=== PATIENT | female | born 1995 | race Caucasian/White ===

== ENCOUNTER 2022-02-27 19:25 | Emergency (ER) | payer OTHER ==
[~2022-02-27] VITALS: Ht 162.6 cm; Wt 65.5 kg
[2022-02-27] MEDS ORDERED: SODIUM CHLORIDE 0.9% 1,000 ML IV ONE (21:15)
[2022-02-27 21:21] LABS: BASOPHILS % (AUTO) 1.1 % (0.0-2.0); EOSINOPHILS % (AUTO) 1.7 % (1.0-6.0); HEMATOCRIT 34.5 % (36-46); HEMOGLOBIN 11.3 g/dL (12.0-16.0); LYMPHOCYTES # (AUTO) 1.7 K/uL (1.0-4.8); LYMPHOCYTES % (AUTO) 32.4 % (22.0-44.0); MEAN CORPUSCULAR HEMOGLOBIN 27.4 pg (26.0-34.0); MEAN CORPUSCULAR HGB CONC 32.8 G/dL (31.0-37.0); MEAN CORPUSCULAR VOLUME 83 fL (80-100); MONOCYTES # (AUTO) 0.3 K/uL (0.1-1.0); MONOCYTES % (AUTO) 5.3 % (2.0-9.0); NEUTROPHILS # (AUTO) 3.1 K/uL (1.8-7.7); NEUTROPHILS % (AUTO) 59.5 % (40.0-70.0); PLATELET COUNT (AUTO) 266 K/uL (150-450); RED BLOOD CELL COUNT(AUTO) 4.14 MIL/uL (4.00-5.20); RED CELL DISTRIBUTION WIDTH 13.2 % (11.5-14.5)
[2022-02-27 21:31] LABS: ANION GAP 4 mmol/L (8-16); CALCIUM, TOTAL 9.1 mg/dL (8.8-10.5); CARBON DIOXIDE 31 mmol/L (22-29); CHLORIDE 102 mmol/L (98-107); CREATININE 0.95 mg/dL (0.60-1.30); GLUCOSE,RANDOM 93 mg/dL (70-110); POTASSIUM 4.2 mmol/L (3.5-5.1); SODIUM SERUM 137 mmol/L (136-145); UREA NITROGEN, BLOOD 9 mg/dL (7-18)
[2022-02-27 21:32] LABS: GLOMERULAR FILTR. RATE CALC > 60 mL/min (>60)
[2022-02-27 21:41] LABS: ALANINE AMINOTRANSFERASE 14 U/L (12-78); ALBUMIN 3.8 g/dL (3.4-5.0); ALKALINE PHOSPHATASE 59 U/L (46-116); ASPARTATE AMINOTRANSFERASE 15 U/L (15-37); BILIRUBIN,TOTAL 0.2 mg/dL (0.1-1.0); CREATINE KINASE, TOTAL ONLY 105 U/L (26-192); TOTAL PROTEIN, SERUM 7.3 g/dL (6.4-8.2)
[2022-02-27 21:42] LABS: PROTHROMBIN TIME 10.7 SEC (9.4-11.6)
[2022-02-27 21:47] LABS: B-TYPE NATRIURETIC PEPTIDE 13 pg/mL (0-100)
[2022-02-27 22:43] LABS: APPEARANCE,URINE CLEAR (CLEAR); BILIRUBIN,URINE NEGATIVE (NEGATIVE); GLUCOSE, URINE (UA) NEGATIVE (NEGATIVE); KETONES,URINE NEGATIVE (NEGATIVE); LEUKOCYTE ESTERASE ,URINE SMALL (NEGATIVE); NITRATE,URINE NEGATIVE (NEGATIVE); OCCULT BLOOD,URINE NEGATIVE (NEGATIVE); PH,URINE 6.5 (5.0-8.0); PROTEIN,URINE NEGATIVE (NEGATIVE); SPECIFIC GRAVITIY, URINE 1.007 (1.003-1.030); UROBILINOGEN,URINE <=1.0 mg/dL (<=1.0)
[2022-02-27 22:44] LABS: AMPHET/METH SCREEN,URINE NEGATIVE (NEGATIVE); BARBITURATE SCREEN, URINE NEGATIVE (NEGATIVE); BENZODIAZEPINES SCREEN,URINE NEGATIVE (NEGATIVE); CANNABINOID SCREEN,URINE NEGATIVE (NEGATIVE); COCAINE SCREEN,URINE POSITIVE (NEGATIVE); METHADONE SCREEN, URINE NEGATIVE (NEGATIVE); OPIATE SCREEN,URINE NEGATIVE (NEGATIVE)
[2022-02-27 22:47] LABS: PHENCYCLIDINE SCREEN,URINE NEGATIVE (NEGATIVE)
[2022-02-27 22:50] LABS: BACTERIA,URINE None Seen /HPF (None Seen); RBC,URINE None Seen /HPF (0-2); SQUAMOUS EPITHELIAL CELL,UR Few /LPF (None Seen)
[2022-02-27] MEDS ORDERED: KETOROLAC TROMETHAMINE 30 MG/ML VIAL IVP ONE (23:00)
[2022-02-27 23:30] VITALS: BP 101/68
[2022-02-27 23:35] LABS: HCG,QUANTITATIVE < 1 mIU/mL (0-6)
== END 2022-02-28 01:17 | disposition home or self-care (01) ==
LOC: EMS 19:25
DX: R07.89 Other chest pain (principal); F14.10 Cocaine abuse, uncomplicated
CPT/HCPCS: 99285; 96374; 71045; 96361; 80053; 82550; 83880; 84484; 84702; 85025; 85610; 85730; 36415; 81025; 93005; 80307; 81001; J1885; J7030

== ENCOUNTER 2022-06-04 04:48 | Emergency (ER) | payer OTHER ==
[~2022-06-04] VITALS: Ht 165.1 cm; Wt 65.9 kg
[2022-06-04 05:54] LABS: BASOPHILS % (AUTO) 1.6 % (0.0-2.0); EOSINOPHILS % (AUTO) 1.2 % (1.0-6.0); HEMATOCRIT 35.2 % (36-46); HEMOGLOBIN 11.4 g/dL (12.0-16.0); LYMPHOCYTES # (AUTO) 2.4 K/uL (1.0-4.8); LYMPHOCYTES % (AUTO) 38.8 % (22.0-44.0); MEAN CORPUSCULAR HEMOGLOBIN 26.3 pg (26.0-34.0); MEAN CORPUSCULAR HGB CONC 32.3 G/dL (31.0-37.0); MEAN CORPUSCULAR VOLUME 82 fL (80-100); MONOCYTES # (AUTO) 0.5 K/uL (0.1-1.0); NEUTROPHILS # (AUTO) 3.1 K/uL (1.8-7.7); NEUTROPHILS % (AUTO) 50.4 % (40.0-70.0); PLATELET COUNT (AUTO) 347 K/uL (150-450); RED BLOOD CELL COUNT(AUTO) 4.32 MIL/uL (4.00-5.20); RED CELL DISTRIBUTION WIDTH 13.5 % (11.5-14.5)
[2022-06-04 06:03] LABS: ANION GAP 8 mmol/L (8-16); CALCIUM, TOTAL 9.2 mg/dL (8.8-10.5); CARBON DIOXIDE 26 mmol/L (22-29); CHLORIDE 105 mmol/L (98-107); GLOMERULAR FILTR. RATE CALC > 60 mL/min (>60); GLUCOSE,RANDOM 89 mg/dL (70-110); POTASSIUM 3.3 mmol/L (3.5-5.1); SODIUM SERUM 139 mmol/L (136-145); UREA NITROGEN, BLOOD 8 mg/dL (7-18)
[2022-06-04 06:16] LABS: B-TYPE NATRIURETIC PEPTIDE 10 pg/mL (0-100)
[2022-06-04 06:28] LABS: ALANINE AMINOTRANSFERASE 15 U/L (12-78); ALBUMIN 4.3 g/dL (3.4-5.0); ALKALINE PHOSPHATASE 84 U/L (46-116); ASPARTATE AMINOTRANSFERASE 25 U/L (15-37); BILIRUBIN,TOTAL 0.2 mg/dL (0.1-1.0); CREATINE KINASE, TOTAL ONLY 302 U/L (26-192); TOTAL PROTEIN, SERUM 8.1 g/dL (6.4-8.2)
[2022-06-04] MEDS ORDERED: METHOCARBAMOL 500 MG TABLET PO ONE (06:30)
[2022-06-04] MEDS ORDERED: KETOROLAC TROMETHAMINE 30 MG/ML VIAL IVP ONE (06:30)
[2022-06-04 06:39] LABS: AMPHET/METH SCREEN,URINE NEGATIVE (NEGATIVE); BARBITURATE SCREEN, URINE NEGATIVE (NEGATIVE); BENZODIAZEPINES SCREEN,URINE NEGATIVE (NEGATIVE); CANNABINOID SCREEN,URINE NEGATIVE (NEGATIVE); COCAINE SCREEN,URINE POSITIVE (NEGATIVE); METHADONE SCREEN, URINE NEGATIVE (NEGATIVE); OPIATE SCREEN,URINE NEGATIVE (NEGATIVE); PHENCYCLIDINE SCREEN,URINE NEGATIVE (NEGATIVE)
[2022-06-04] MEDS ORDERED: IBUPROFEN 600 MG TABLET PO ONE (06:45)
[2022-06-04] MEDS ORDERED: LORazepam 1 MG TABLET PO ONE (06:45)
[2022-06-04] MEDS ORDERED: IBUP-1492 PO (09:06)
[2022-06-04] MEDS ORDERED: METH-659 PO (09:07)
[2022-06-04 09:56] VITALS: BP 100/65
== END 2022-06-04 10:09 | disposition home or self-care (01) ==
LOC: EMS 04:49
DX: R07.89 Other chest pain (principal); E11.9 Type 2 diabetes mellitus without complications; F14.90 Cocaine use, unspecified, uncomplicated; I10 Essential (primary) hypertension
CPT/HCPCS: 71045; 80053; 80307; 82550; 83880; 84484; 84703; 85025; 93005; 99285; 36415-L1; 36415-TC

== ENCOUNTER 2023-07-29 22:55 | Inpatient (IN) | payer SELFPAY ==
[2023-07-29 22:00] VITALS: RESP 18
[~2023-07-29 22:55] MED LIST: IBUP-1492 PO; METH-659 PO
[2023-07-30] MEDS: LORazepam 2 MG/ML VIAL IM ONE (00:10)
[2023-07-30] MEDS: HALOPERIDOL LACTATE 5 MG/ML VIAL IM ONE (00:11)
[2023-07-30] MEDS: DiphenhydrAMINE HCL 50 MG/ML VIAL IM ONE (00:11)
[2023-07-31] MEDS ORDERED: LORazepam 2 MG/ML VIAL ONE (08:43)
[2023-07-31] MEDS ORDERED: HALOPERIDOL LACTATE 5 MG/ML VIAL ONE (08:43)
[2023-07-31] MEDS ORDERED: DiphenhydrAMINE HCL 50 MG/ML VIAL ONE (08:44)
[2023-07-31] MEDS: LORazepam 2 MG/ML VIAL IM ONE (08:53)
[2023-07-31] MEDS: DiphenhydrAMINE HCL 50 MG/ML VIAL IM ONE (08:53)
[2023-07-31] MEDS: HALOPERIDOL LACTATE 5 MG/ML VIAL IM ONE (08:56)
[2023-07-31] MEDS ORDERED: PETROLATUM,WHITE 28 GM JELLY TP PRN (10:45)
[2023-07-31] MEDS ORDERED: IBUPROFEN 400 MG TABLET PO PRN (10:45)
[2023-07-31] MEDS ORDERED: MAGNESIUM HYDROXIDE SUSPENSION 30 ML UDCUP PO PRN (10:45)
[2023-07-31] MEDS ORDERED: MAG HYDROX/ALUMINUM HYD/SIMETH ES 30 ML SUSPENSION UDCUP PO PRN (10:45)
[2023-07-31] MEDS ORDERED: LOPERAMIDE HCL 2 MG CAPSULE PO PRN (10:45)
[2023-07-31] MEDS ORDERED: ACETAMINOPHEN 325 MG TABLET PO PRN (10:45)
[2023-07-31] MEDS ORDERED: ONDANSETRON HCL 4 MG TABLET PO PRN (10:45)
[2023-07-31] MEDS ORDERED: DOCUSATE SODIUM 100 MG CAPSULE PO PRN (10:45)
[2023-07-31] MEDS ORDERED: CloNIDine HCL 0.1 MG TABLET PO PRN (10:45)
[2023-07-31] MEDS ORDERED: GuaiFENesin/D-METHORPHAN [SUGAR-FREE] 200-20MG/10 ML SYRUP UDCUP PO PRN (10:45)
[2023-07-31] MEDS ORDERED: ALBUTEROL SULFATE HFA 90 MCG/PUFF 8 GM INHALER IH PRN (10:45)
[2023-07-31] MEDS: RisperiDONE 2 MG TABLET PO SCH (11:30)
[2023-07-31 13:03] VITALS: RESP 18
[2023-07-31 21:24] VITALS: RESP 18
[2023-08-01] MEDS: NICOTINE 14 MG/24 HOUR PATCH TD PRN (09:40)
[2023-08-01] MEDS: LORazepam 2 MG TABLET PO PRN (09:40)
[2023-08-01 09:49] LABS: HEMOGLOBIN A1C 5.5 % (3.8-5.6)
[2023-08-01 10:21] LABS: CHOL/HDL RATIO 3.8 (3.9-5.7)
[2023-08-01 11:22] VITALS: PULSE 69; RESP 18; TEMP 97.7
[2023-08-01] MEDS: HALOPERIDOL 5 MG TABLET PO PRN (14:21)
[2023-08-01] MEDS: ZOLPIDEM TARTRATE 10 MG TABLET PO PRN (20:58)
[2023-08-01 22:04] VITALS: BP 95/60; PULSE 115; RESP 18; TEMP 97
[2023-08-02] MEDS: LORazepam 2 MG/ML VIAL IM ONE (06:48)
[2023-08-02] MEDS: HALOPERIDOL LACTATE 5 MG/ML VIAL IM ONE (06:49)
[2023-08-02] MEDS: DiphenhydrAMINE HCL 50 MG/ML VIAL IM ONE (06:49)
[2023-08-02 18:30] VITALS: RESP 18
[2023-08-02 20:57] VITALS: RESP 18
[2023-08-03 08:31] LABS: BASOPHILS % (AUTO) 0.6 % (0.0-2.0); HEMATOCRIT 40.8 % (36-46); HEMOGLOBIN 13.1 g/dL (12.0-16.0); MEAN CORPUSCULAR HGB CONC 32.1 G/dL (31.0-37.0); MEAN CORPUSCULAR VOLUME 84 fL (80-100); MONOCYTES # (AUTO) 0.5 K/uL (0.1-1.0); NEUTROPHILS # (AUTO) 1.6 K/uL (1.8-7.7); NEUTROPHILS % (AUTO) 38.4 % (40.0-70.0); PLATELET COUNT (AUTO) 246 K/uL (150-450); RED BLOOD CELL COUNT(AUTO) 4.84 MIL/uL (4.00-5.20); WHITE BLOOD COUNT (AUTO) 4.2 K/uL (4.5-11.0)
[2023-08-03 08:53] LABS: ALANINE AMINOTRANSFERASE 42 U/L (12-78); ALKALINE PHOSPHATASE 67 U/L (46-116); ANION GAP 3 mmol/L (8-16); ASPARTATE AMINOTRANSFERASE 42 U/L (15-37); BILIRUBIN,TOTAL 0.2 mg/dL (0.1-1.0); CALCIUM, TOTAL 8.8 mg/dL (8.8-10.5); CARBON DIOXIDE 32 mmol/L (22-29); CHLORIDE 105 mmol/L (98-107); CREATININE 0.79 mg/dL (0.60-1.30); GLOMERULAR FILTR. RATE CALC > 60 mL/min (>60); GLUCOSE,RANDOM 101 mg/dL (70-110); POTASSIUM 4.3 mmol/L (3.5-5.1); SODIUM SERUM 140 mmol/L (136-145); THYROID STIMULATING HORMONE 3.57 uIU/mL (0.36-3.74); TOTAL PROTEIN, SERUM 6.8 g/dL (6.4-8.2); UREA NITROGEN, BLOOD 11 mg/dL (7-18)
[2023-08-03 12:47] VITALS: BP 100/60; PULSE 102; RESP 16; TEMP 97.9
[2023-08-03] MEDS ORDERED: LORazepam 2 MG/ML VIAL IM ONE (13:30)
[2023-08-03] MEDS ORDERED: HALOPERIDOL LACTATE 5 MG/ML VIAL IM ONE (13:30)
[2023-08-03] MEDS ORDERED: DiphenhydrAMINE HCL 50 MG/ML VIAL IM ONE (13:30)
[2023-08-03 20:34] VITALS: RESP 18
[2023-08-04] MEDS: NICOTINE POLACRILEX 2 MG LOZENGE PO PRN (19:45)
[2023-08-04 21:50] VITALS: BP 101/64; PULSE 126; RESP 18; TEMP 97.5
[2023-08-05] MEDS ORDERED: RISP2TAB45 PO (06:33)
[2023-08-05 08:51] VITALS: BP 115/64; PULSE 102; RESP 17; TEMP 97.6
== END 2023-08-05 15:05 | disposition home or self-care (01) | DRG 885 ==
LOC: 3EC 07-30 20:51
PROVIDERS: ADMIT Psychiatry & Neurology Psychiatry; ATTEND Psychiatry & Neurology Psychiatry
PROC: GZHZZZZ Group Psychotherapy (ICD-10-PCS; principal; 2023-07-31)
DX: F20.0 Paranoid schizophrenia (principal); F15.10 Other stimulant abuse, uncomplicated; F41.9 Anxiety disorder, unspecified; F17.200 Nicotine dependence, unspecified, uncomplicated; F11.10 Opioid abuse, uncomplicated; Z79.899 Other long term (current) drug therapy
CPT/HCPCS: 80053; 80061; 83036; 84443; 85025; 99285; J1200; J1630; J2060; Q9967

== ENCOUNTER 2023-07-30 02:41 | Emergency (ER) | payer OTHER ==
[~2023-07-30] VITALS: Ht 167.6 cm; Wt 49.7 kg
[2023-07-30 04:59] VITALS: TEMP 98.9
[2023-07-30 05:44] LABS: BASOPHILS % (AUTO) 0.6 % (0.0-2.0); EOSINOPHILS % (AUTO) 2.4 % (1.0-6.0); HEMATOCRIT 34.3 % (36-46); HEMOGLOBIN 11.1 g/dL (12.0-16.0); LYMPHOCYTES # (AUTO) 2.8 K/uL (1.0-4.8); LYMPHOCYTES % (AUTO) 47.1 % (22.0-44.0); MEAN CORPUSCULAR HEMOGLOBIN 27.3 pg (26.0-34.0); MEAN CORPUSCULAR HGB CONC 32.5 G/dL (31.0-37.0); MEAN CORPUSCULAR VOLUME 84 fL (80-100); MONOCYTES # (AUTO) 0.8 K/uL (0.1-1.0); MONOCYTES % (AUTO) 12.9 % (2.0-9.0); NEUTROPHILS # (AUTO) 2.2 K/uL (1.8-7.7); PLATELET COUNT (AUTO) 243 K/uL (150-450); RED BLOOD CELL COUNT(AUTO) 4.09 MIL/uL (4.00-5.20); RED CELL DISTRIBUTION WIDTH 15.1 % (11.5-14.5); WHITE BLOOD COUNT (AUTO) 5.9 K/uL (4.5-11.0)
[2023-07-30 05:55] LABS: ANION GAP 7 mmol/L (8-16); CALCIUM, TOTAL 8.6 mg/dL (8.8-10.5); CARBON DIOXIDE 30 mmol/L (22-29); CHLORIDE 106 mmol/L (98-107); CREATININE 0.88 mg/dL (0.60-1.30); GLOMERULAR FILTR. RATE CALC > 60 mL/min (>60); GLUCOSE,RANDOM 114 mg/dL (70-110); POTASSIUM 3.6 mmol/L (3.5-5.1); SODIUM SERUM 143 mmol/L (136-145); UREA NITROGEN, BLOOD 20 mg/dL (7-18)
[2023-07-30 06:02] LABS: ALANINE AMINOTRANSFERASE 35 U/L (12-78); ALBUMIN 3.1 g/dL (3.4-5.0); ALKALINE PHOSPHATASE 86 U/L (46-116); ASPARTATE AMINOTRANSFERASE 47 U/L (15-37); BILIRUBIN,TOTAL 0.1 mg/dL (0.1-1.0); TOTAL PROTEIN, SERUM 6.3 g/dL (6.4-8.2)
[2023-07-30 06:07] LABS: ALCOHOL, BLOOD (SERUM) < 3 mg/dL (0-10)
[2023-07-30 06:32] LABS: COVID AG,FIA SOURCE NASAL SWAB
[2023-07-30 08:02] LABS: SARS-COV2 (COVID) ANTIGEN,FIA Negative (Negative)
[2023-07-30 20:29] LABS: ALCOHOL, URINE DRUG SCREEN NEGATIVE (NEGATIVE); AMPHET/METH SCREEN,URINE POSITIVE (NEGATIVE); BARBITURATE SCREEN, URINE NEGATIVE (NEGATIVE); BENZODIAZEPINES SCREEN,URINE NEGATIVE (NEGATIVE); CANNABINOID SCREEN,URINE POSITIVE (NEGATIVE); COCAINE SCREEN,URINE NEGATIVE (NEGATIVE); METHADONE SCREEN, URINE NEGATIVE (NEGATIVE); OPIATE SCREEN,URINE NEGATIVE (NEGATIVE); PHENCYCLIDINE SCREEN,URINE NEGATIVE (NEGATIVE)
[2023-07-30 21:51] VITALS: BP 103/61; PULSE 58; RESP 16
== END 2023-07-30 22:03 | disposition home or self-care (01) ==
LOC: EMS 02:41 → 3EC 20:38 → UNDOADMIN 20:38 → EMS 22:03
DX: F20.0 Paranoid schizophrenia (principal); F11.20 Opioid dependence, uncomplicated; Z20.822 Contact with and (suspected) exposure to COVID-19
CPT/HCPCS: 99285; 87426; 80053; 84703; 85025; 36415; 80307; G0480